=== PATIENT | male | born 1950 | race Caucasian/White ===

== ENCOUNTER 2016-10-27 19:54 | Emergency (ER) ==
[2016-10-27 19:58] VITALS: TEMP 97.6; BMI 27.2
[2016-10-27] MEDS: CATAPRES PO STA (20:16)
--- NOTE | 2016-10-27 20:29 | ED.PDOC ---
[id number] bleeding from the left side of my nose Time Seen by Physician: 20:00 Mode of Arrival: Walk-In Information Source: Patient, Family Exam Limitations: No limitations Primary Care Provider: VENESSA [facility] Nursing and Triage Documentation Reviewed and Agree: Yes EENT Complaint Exam - Nasal Complaint/Exam Onset/Duration: 5hrs Symptoms Are: Still present Timing: Intermittent Initial Severity: Mild Current Severity: Mild Location: Left Character: Light bleeding Aggravating: Reports: Nasal picking, Hypertension Alleviating: Reports: Pressure Associated Signs and Symptoms: Denies: Nasal congestion, Bruising, Hematuria, Hematochezia, Sinus pain, Nasal discharge, Foreign body, Abnormal coags Related History: Reports: Aspirin Nasal Surgical History: Reports: None Bleeding Present At: Left nostril Foreign Body Present: No Septal Hematoma: No Differential Diagnoses: Epistaxis Review of Systems - Review Of Systems Constitutional: Reports: No symptoms Eyes: Reports: No symptoms Ears, Nose, Mouth, Throat: Reports: Epistaxis Respiratory: Reports: No symptoms Cardiac: Reports: No symptoms GI: Reports: No symptoms : Reports: No symptoms Musculoskeletal: Reports: No symptoms Skin: Reports: No symptoms Neurological: Reports: No symptoms Endocrine: Reports: No symptoms Hematologic/Lymphatic: Reports: No symptoms All Other Systems: Reviewed and Negative Past Medical History - Past Medical History Endocrine: Reports: Hypothyroid, Dyslipidemia Cardiovascular: Reports: Hypertension Respiratory: Reports: None Hematological: Reports: None Gastrointestinal: Reports: None Genitourinary: Reports: None Neuro/Psych: Reports: None Musculoskeletal: Reports: Unknown 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 ) Other Pertinent Past Medical History: back pain - Surgical History General Surgical History: Reports: Other (RIGHT TESTICLE REMOVED 1986) - Family History Family History: Reports: None - Social History Smoking Status: Never smoker Hx Substance Use: No Alcohol Screening: Occasionally Lives: With family - Immunizations Tetanus Shot up to Date: Yes Physical Exam - Physical Exam Appearance: Well-appearing, No pain distress, Well-nourished Eyes: DOUGLAS, EOMI, Conjunctiva clear ENT: Epistaxis Neck: Supple Respiratory: Airway patent, Breath sounds clear, Breath sounds equal, Respirations nonlabored Cardiovascular: RRR, Pulses normal, No rub, No murmur GI/: Soft Musculoskeletal: Normal strength, ROM intact, No edema, No calf tenderness Skin: Warm, Dry, Normal color Neurological: Sensation intact, Motor intact, Reflexes intact, Cranial nerves intact, Alert, Oriented Psychiatric: Affect appropriate, Mood appropriate, Anxious Procedures - Nasal Packing/Cautery Indications: Present: Anterior epistaxis Packing/Cautery Procedure: Left, Silver nitrate Suction Used: No Pressure Used to Control Bleeding: No Hemostasis Obtained: Yes Re-Evaluation - Re-Evaluation Time of Re-Evaluation: 21:05 Status: Improved (no bleeding) Vital Signs Stable: Yes Pain Level: 0 Appearance: NAD Lungs: Clear Skin: Warm and Dry Neuro: Alert and Oriented X3 CV: RRR Critical Care Note - Critical Care Note Total Time (mins): 0 Course - Course Orders, Labs, Meds: Orders Category Date Time Status Clonidine HCl [Catapres] MEDS 10/27/16 20:12 Discontinued 0.1 mg PO ONCE STA Medications Discontinued Medications Generic Name Dose Route Start Last Admin Trade Name Freq PRN Reason Stop Dose Admin Clonidine 0.1 mg 10/27/16 20:12 10/27/16 20:16 Catapres PO 10/27/16 20:13 0.1 mg ONCE STA Administration Vital Signs: Temp Pulse Resp BP Pulse Ox 10/27/16 19:55 97.6 F 94 H 18 144/86 H 97 Departure - Departure Time of Disposition: 21:05 Disposition: HOME SELF-CARE Discharge Problem: Epistaxis Instructions: Nosebleed (ED) Condition: Good Pt referred to PMD for follow-up: Yes Additional Instructions: hold asa tomorrow---monitor bp--f/u with pcp Allergies/Adverse Reactions: Allergies No Known Drug Allergies Adverse Reaction (Verified 10/27/16 20:04) Home Medications: Ambulatory Orders Amitriptyline HCl 100 mg PO DAILY 06/18/15 Amlodipine Besylate [Norvasc] 10 mg PO BID 06/18/15 Gemfibrozil 600 mg PO BID 06/18/15 Hydrochlorothiazide 25 mg PO DAILY 06/18/15 Levothyroxine Sodium [Synthroid] 75 mcg PO QDAC 06/18/15 Metoprolol Tartrate [Lopressor] 100 mg PO BID 06/18/15 Omeprazole Magnesium [Prilosec Otc] 20 mg PO DAILY 06/18/15 Aspirin [Aspirin EC] 81 mg PO DAILYWM 10/27/16 Melatonin 10 mg PO DAILY 03/15/17 Rosuvastatin Calcium 20 mg PO DAILY 10/27/16 Disposition Discussed With: Patient, Family
[2016-10-27 21:24] VITALS: BP 143/80
[2016-10-27] MEDS ORDERED: SILVER NITRATE APPLICATOR TP STA ×2 (21:52)
== END 2016-10-27 21:20 | disposition home or self-care (01) ==
LOC: ED 19:54
DX: R04.0 Epistaxis (principal); I10 Essential (primary) hypertension; Z79.82 Long term (current) use of aspirin; Z79.899 Other long term (current) drug therapy
CPT/HCPCS: 99283